=== PATIENT | female | born 1980 | race Caucasian/White ===

== ENCOUNTER 2018-10-19 23:07 | Emergency (ER) | payer SELFPAY ==
[~2018-10-19] VITALS: Ht 170.2 cm; Wt 63.5 kg
[2018-10-19 23:24] VITALS: BP 141/90
[2018-10-20 00:15] VITALS: BP 138/85
== END 2018-10-20 00:15 | disposition home or self-care (01) ==
LOC: MED 23:07
DX: H60.13 Cellulitis of external ear, bilateral (principal); Z88.1 Allergy status to other antibiotic agents; Z98.84 Bariatric surgery status
CPT/HCPCS: 99283

== ENCOUNTER 2019-01-10 03:45 | Emergency (ER) | payer SELFPAY ==
[~2019-01-10] VITALS: Ht 170.2 cm; Wt 57.6 kg
[2019-01-10 03:51] VITALS: BP 120/86
--- NOTE | 2019-01-10 03:55 | NUR ---
PT AMBULATED TO BED 2 WITH VSS. PROVIDING URINE.
--- NOTE | 2019-01-10 04:07 | NUR ---
PATIENT PRESENTS TO ED WITH STATES FACIAL AND EAR RASH HAS WOSENED THIS MORNING. BURNING AND ITCHING PAIN WITH 5/10. VSS. DENIES N/V/D; SKIN IS PINK/WARM/DRY; AAOX4 WITH EVEN AND STEADY GAIT; LUNGS CLEAR BL; HR EVEN AND REGULAR; PT DENIES ANY FEVER, CP, SOB, OR COUGH AT THIS TIME; PATIENT STATES PAIN OF 5/10 AT THIS TIME; VSS; PATIENT POSITIONED FOR COMFORT; HOB ELEVATED; BEDRAILS UP X2; BED DOWN. ER MD MADE AWARE OF PT STATUS.
--- NOTE | 2019-01-10 04:36 | NUR ---
Patient discharged with v/s stable. Written and verbal after care instructions given and explained. Patient alert, oriented and verbalized understanding of instructions. Ambulatory with steady gait. All questions addressed prior to discharge. ID band removed. Patient advised to follow up with PMD. Rx of hydrocortisone cream given. Patient educated on indication of medication including possible reaction and side effects. Opportunity to ask questions provided and answered.
[2019-01-10 04:37] VITALS: BP 120/86
== END 2019-01-10 04:36 | disposition home or self-care (01) ==
LOC: MED 03:45
DX: L98.9 Disorder of the skin and subcutaneous tissue, unspecified (principal); R11.2 Nausea with vomiting, unspecified; Z88.1 Allergy status to other antibiotic agents
CPT/HCPCS: 99282

== ENCOUNTER 2019-06-04 00:04 | Emergency (ER) | payer SELFPAY ==
[~2019-06-04] VITALS: Ht 170.2 cm; Wt 59.4 kg
[2019-06-04 00:12] VITALS: BP 130/76
--- NOTE | 2019-06-04 00:25 | NUR ---
PT AMBULATED TO BED 9
[2019-06-04 00:34] VITALS: BP 130/76
--- NOTE | 2019-06-04 00:34 | NUR ---
38 Y/O F PRESENTED TO ED WITH C/O SORE THROAT AND CONGESTION X2DAYS. AAOX4. BILATERAL LUNG GILL CLEAR. O2 SATURATION 97% ON ROOM AIR. NO REDNESS OR EXUDATED NOTED TO THROAT. PT STATED "IT HURTS TO SWALLOW." 6/10 HEADACHE TO L SHINTO, THROBBING. C/O L OUTER EAR DRAINAGE. REDNESS AND DRIED DRAINAGE NOTED. L OUTER EAR TENDER TO TOUCH. FAMILY AT BEDSIDE. WILL CONTINUE TO MONITOR.
[2019-06-04] MEDS ORDERED: ACETAMIN/CODEINE 120/12MG-5ML 5 ML UDC PO ONE (01:00)
--- NOTE | 2019-06-04 01:11 | NUR ---
Patient discharged with v/s stable. Written and verbal after care instructions given and explained. Patient alert, oriented and verbalized understanding of instructions. Ambulatory with steady gait. All questions addressed prior to discharge. ID band removed. Patient advised to follow up with PMD. Rx of bactrim and guaiatussin given. Patient educated on indication of medication including possible reaction and side effects. Opportunity to ask questions provided and answered.
== END 2019-06-04 01:11 | disposition home or self-care (01) ==
LOC: MED 00:04
DX: J01.90 Acute sinusitis, unspecified (principal); Z88.1 Allergy status to other antibiotic agents; Z91.048 Other nonmedicinal substance allergy status; Z98.890 Other specified postprocedural states
CPT/HCPCS: 99283

== ENCOUNTER 2019-06-22 02:54 | Emergency (ER) | payer SELFPAY ==
[~2019-06-22] VITALS: Ht 170.2 cm; Wt 57.2 kg
[2019-06-22 02:57] VITALS: BP 151/80
--- NOTE | 2019-06-22 03:00 | NUR ---
Pt ambulated to bed 9. Addendum: 06/22/19 at 0303 by MEDJ Pt ambulated to bed 9.
[2019-06-22] MEDS ORDERED: SILVER SULFADIAZINE 1% 50 GM JAR TP ONE (03:20)
--- NOTE | 2019-06-22 03:30 | NUR ---
33 y/o female c/o rash to left ear and behind ear x1 month. Pt has been treated at [facility] and [facility]. Pt has not had relief. Area open behind ear 1". Pain/burning/itching /. Afebrile. Ear is tender upon palpation and warm to touch. ER MD aware of patient's status. side rails x1. HX: gastric bypass, esophageal tear Meds: denies
[2019-06-22] MEDS ORDERED: KETOROLAC 60 MG/2 ML VIAL IM ONE (04:20)
--- NOTE | 2019-06-22 04:58 | NUR ---
Pearl greenberg in [facility] - 06/22/19 at 0459 by JED Pt. is sleeping at this time.
--- NOTE | 2019-06-22 04:59 | NUR ---
Pt. is sleeping at this time. side rails up x1.
--- NOTE | 2019-06-22 05:15 | NUR ---
Patient discharged with v/s stable. Written and verbal after care instructions given and explained. Patient alert, oriented and verbalized understanding of instructions. Ambulatory with steady gait. All questions addressed prior to discharge. ID band removed. Patient advised to follow up with PMD. Rx of Motrin 800mg; clindamycin 300mg; Mupirocin and Promethazine with Codeine 2tsp as needed given. Patient educated on indication of medication including possible reaction and side effects. Opportunity to ask questions provided and answered.
[2019-06-22 05:21] VITALS: BP 116/78
== END 2019-06-22 05:15 | disposition home or self-care (01) ==
LOC: MED 02:54
DX: J32.9 Chronic sinusitis, unspecified (principal); R21 Rash and other nonspecific skin eruption; R03.0 Elevated blood-pressure reading, without diagnosis of hypertension; Z88.1 Allergy status to other antibiotic agents; Z91.09 Other allergy status, other than to drugs and biological substances
CPT/HCPCS: 96372; 99283; J1885

== ENCOUNTER 2019-07-06 19:07 | Emergency (ER) | payer SELFPAY ==
--- NOTE | 2019-07-06 19:58 | NUR ---
PATIENT LEFT WITHOUT BEING SEEN BY DR. CAICEDO. CALLED X3 AT 19:46, 19:58, AND 20:08. NO FURTHER CARE PROVIDED FOR PATIENT.
== END 2019-07-06 19:46 | disposition left against medical advice (07) ==
LOC: MED 19:07
DX: Z53.21 Procedure and treatment not carried out due to patient leaving prior to being seen by health care provider (principal)

== ENCOUNTER 2019-07-07 11:09 | Emergency (ER) | payer SELFPAY ==
[~2019-07-07] VITALS: Ht 170.2 cm; Wt 63.5 kg
[2019-07-07 11:10] VITALS: BP 116/74
--- NOTE | 2019-07-07 11:24 | NUR ---
C/O 10/10 L EAR PAIN AND HEARING LOSS TO THE L EAR AND POPPING SENSATION X 3 DAYS. PT STATES BLOOD AND GREEN D/C FROM EARS. NO DISCHARGE AT THIS TIME. EAR CANAL IS CLEAN. COULD NOT VISUALIZE TM AT THIS TIME- PT C/O PAIN WITH OTOSCOPE. DENIES INJURY TO L EAR. STATES DIZZINESS, BUT THIS IS A CHRONIC PROBLEM. HX: GASTRIC ULCER RX: PROTONIX
[2019-07-07] MEDS ORDERED: HYDROcodone/APAP 5/325 MG 1 TAB TAB PO ONE (12:15)
[2019-07-07] MEDS ORDERED: KETOROLAC 30 MG/ML VIAL IVP ONE (12:15)
[2019-07-07] MEDS ORDERED: cefTRIAXone 1,000 MG VIAL ONE (12:23)
[2019-07-07] MEDS ORDERED: SODIUM CHLORIDE FLUSH 10 ML SYR IVF SCH (13:00)
[2019-07-07 14:40] VITALS: BP 125/74
--- NOTE | 2019-07-07 14:43 | NUR ---
Patient discharged with v/s stable. Written and verbal after care instructions given and explained. Patient alert, oriented and verbalized understanding of instructions. Ambulatory with steady gait. All questions addressed prior to discharge. ID band removed. Patient advised to follow up with PMD. Rx of CORTICOSPORIN, KEFLEX, TYLENOL WITH CODEINE given. Patient educated on indication of medication including possible reaction and side effects. Opportunity to ask questions provided and answered.
== END 2019-07-07 14:43 | disposition home or self-care (01) ==
LOC: MED 11:09
DX: H66.92 Otitis media, unspecified, left ear (principal); H60.92 Unspecified otitis externa, left ear; Z88.1 Allergy status to other antibiotic agents; Z88.8 Allergy status to other drugs, medicaments and biological substances
CPT/HCPCS: 96365; 96366; 96375; 99283; J0696; J1885

== ENCOUNTER 2020-08-26 22:42 | Emergency (ER) | payer MEDICAID ==
[~2020-08-26] VITALS: Ht 170.2 cm; Wt 61.2 kg
[2020-08-26 22:48] VITALS: BP 123/69
[2020-08-26 23:25] VITALS: BP 123/69
[2020-08-26 23:53] LABS: BASOPHILS # (AUTO) 0.1 K/uL (0.00-0.22); BASOPHILS % (AUTO) 1.2 % (0.0-2.0); EOSINOPHILS # (AUTO) 0.1 K/uL (0-0.4); EOSINOPHILS % (AUTO) 1.2 % (0.0-4.0); HEMATOCRIT 26.2 % (36-48); HEMOGLOBIN 7.4 g/dL (12.0-16.0); LYMPHOCYTES # (AUTO) 1.3 K/uL (2.5-16.5); LYMPHOCYTES % (AUTO) 18.1 % (20.5-51.1); MEAN CORPUSCULAR HEMOGLOBIN 17 pg (27-31); MEAN CORPUSCULAR HGB CONC 28 g/dL (33-37); MEAN CORPUSCULAR VOLUME 59.9 fL (80-94); MONOCYTES # (AUTO) 1.1 K/uL (0.8-1.0); MONOCYTES % (AUTO) 15.6 % (1.7-9.3); NEUTROPHILS # (AUTO) 4.5 K/uL (1.8-7.7); NEUTROPHILS % (AUTO) 63.9 % (42.2-75.2); PLATELET COUNT (AUTO) 317 K/uL (140-450); RED BLOOD CELL COUNT(AUTO) 4.38 MIL/uL (4.20-5.40); RED CELL DISTRIBUTION WIDTH 20.5 % (11.6-13.7); WHITE BLOOD COUNT (AUTO) 7.1 K/uL (4.8-10.8)
[2020-08-27 00:09] LABS: ALBUMIN 3.2 g/dL (3.4-5.0); ANION GAP 14.4 (8-16); CARBON DIOXIDE 24.8 mmol/L (21-32); CREATININE 0.7 mg/dL (0.6-1.3); POTASSIUM 3.2 mmol/L (3.5-5.1); TOTAL BILIRUBIN 0.4 mg/dL (0.0-1.0)
== END 2020-08-27 02:11 | disposition home or self-care (01) ==
LOC: MED 22:42
DX: K92.2 Gastrointestinal hemorrhage, unspecified (principal); D64.9 Anemia, unspecified; R11.2 Nausea with vomiting, unspecified; R53.83 Other fatigue
CPT/HCPCS: 36415; 80053; 85025; 99283; Q0163

== ENCOUNTER 2022-06-03 00:30 | Emergency (ER) | payer MEDICAID, OTHER ==
[~2022-06-03] VITALS: Ht 170.2 cm; Wt 59.0 kg
[2022-06-03 00:39] VITALS: BP 131/78
--- NOTE | 2022-06-03 02:23 | NUR ---
Dr. Bentley examining patient.
[2022-06-03] MEDS ORDERED: MUPI2CRE22 TP (02:36)
[2022-06-03 02:45] VITALS: BP 131/78
--- NOTE | 2022-06-03 02:45 | NUR ---
Patient discharged with v/s stable. Written and verbal after care instructions given and explained. Patient verbalized understanding. Ambulatory with steady gait. All questions addressed prior to discharge. Advised to follow up with PMD.
--- NOTE | 2022-06-03 02:45 | NUR ---
AGUSTO SAUCEDA DISCHARGED PT.
== END 2022-06-03 02:45 | disposition home or self-care (01) ==
LOC: MED 00:30
DX: R21 Rash and other nonspecific skin eruption (principal); Z88.1 Allergy status to other antibiotic agents; Z88.8 Allergy status to other drugs, medicaments and biological substances; Z98.890 Other specified postprocedural states; Z72.89 Other problems related to lifestyle
CPT/HCPCS: 99281

== ENCOUNTER 2024-06-07 21:35 | Emergency (ER) | payer OTHER ==
[~2024-06-07] VITALS: Ht 170.2 cm; Wt 69.9 kg
[~2024-06-07 21:35] MED LIST: MUPI2CRE22 TP
[2024-06-07 21:49] VITALS: BP 139/90; PULSE 104; RESP 24; TEMP 98.8; O2SAT 98
[2024-06-07 22:31] LABS: APPEARANCE,URINE CLEAR (CLEAR); BILIRUBIN,URINE NEGATIVE (NEGATIVE); BLOOD, URINE 3+ (NEGATIVE); COLOR,URINE YELLOW (YELLOW); LEUKOCYTE ESTERASE ,URINE TRACE (NEGATIVE); NITRITE, URINE NEGATIVE (NEGATIVE); PROTEIN,URINE 1+ (NEGATIVE); UGLUCOSE NEGATIVE (NEGATIVE)
[2024-06-07 22:39] LABS: BASOPHILS # (AUTO) 0.1 K/uL (0.00-0.22); BASOPHILS % (AUTO) 2.1 % (0.0-2.0); EOSINOPHILS # (AUTO) 0.1 K/uL (0-0.4); EOSINOPHILS % (AUTO) 2.8 % (0.0-4.0); HEMATOCRIT 26.6 % (36-48); HEMOGLOBIN 7.5 g/dL (12.0-16.0); LYMPHOCYTES # (AUTO) 1.7 K/uL (2.5-16.5); LYMPHOCYTES % (AUTO) 34.2 % (20.5-51.1); MEAN CORPUSCULAR HEMOGLOBIN 17 pg (27-31); MEAN CORPUSCULAR HGB CONC 28 g/dL (33-37); MEAN CORPUSCULAR VOLUME 59.4 fL (80-94); MONOCYTES # (AUTO) 0.7 K/uL (0.8-1.0); MONOCYTES % (AUTO) 13.9 % (1.7-9.3); NEUTROPHILS # (AUTO) 2.4 K/uL (1.8-7.7); PLATELET COUNT (AUTO) 428 K/uL (140-450); RED BLOOD CELL COUNT(AUTO) 4.48 MIL/uL (4.20-5.40); RED CELL DISTRIBUTION WIDTH 20.1 % (11.6-13.7); WHITE BLOOD COUNT (AUTO) 5.1 K/uL (4.8-10.8)
[2024-06-07] MEDS: ONDANSETRON 4 MG/2 ML VIAL IVP ONE (22:40)
[2024-06-07] MEDS: MORPHINE SULFATE 4 MG/ML SYR IVP ONE (22:41)
[2024-06-07] MEDS: NACL 0.9% 1,000 ML IV ONE (22:41)
[2024-06-07 22:44] LABS: BACTERIA,URINE 10-30 (MOD) /HPF (None Seen); MUCUS,URINE 1+ /LPF (None Seen); RBC,URINE TOO NUMEROUS TO COUN /HPF (0-5); SQUAMOUS EPITHELIAL CELL,UR 0-3 (FEW) /LPF (0-3 (FEW))
[2024-06-07 22:53] LABS: ALBUMIN 3.5 g/dL (3.4-5.0); ANION GAP 13.6 (8-16); CALCIUM 8.4 mg/dL (8.5-10.1); CARBON DIOXIDE 24.3 mmol/L (21-32); CREATININE 0.6 mg/dL (0.6-1.3); POTASSIUM 3.9 mmol/L (3.5-5.1); TOTAL BILIRUBIN 0.3 mg/dL (0.0-1.0); TOTAL PROTEIN, SERUM 7.1 g/dL (6.4-8.2)
[2024-06-08] MEDS: KETOROLAC 30 MG/ML VIAL IVP ONE (02:44)
[2024-06-08] MEDS ORDERED: ONDA-188 PO (03:33)
[2024-06-08] MEDS ORDERED: CIPR500T4 PO (03:33)
[2024-06-08] MEDS ORDERED: METR-435 PO (03:33)
[2024-06-08 03:42] VITALS: BP 139/90; PULSE 104; RESP 24; TEMP 98.8; O2SAT 98
== END 2024-06-08 03:42 | disposition home or self-care (01) ==
LOC: MED 21:35
DX: K52.9 Noninfective gastroenteritis and colitis, unspecified (principal); Z90.49 Acquired absence of other specified parts of digestive tract; Z98.890 Other specified postprocedural states; Z79.899 Other long term (current) drug therapy; Z88.0 Allergy status to penicillin; Z91.048 Other nonmedicinal substance allergy status
CPT/HCPCS: 36415; 74177; 80053; 81001; 81025; 82948; 83690; 85025; 87086; 96361; 96374; 96375; 99285; J1885; J2270; J2405; J7030; Q9967